=== PATIENT | female | born 1965 | race Hispanic/Latino ===

== ENCOUNTER 2020-01-05 09:38 | Emergency (ER) | payer OTHER ==
[~2020-01-05] VITALS: Ht 157.5 cm; Wt 74.8 kg
[~2020-01-05 09:38] MED LIST: CELEBREX100 MG PO; CIPROFLOXACIN750 MG PO; METHOTREXATE2.5 MG PO; NEXIUM40 MG PO; NITROFURANTOIN100 MG PO; REMICADE100 MG/VIA; [UNRECOGNIZED DRUG - OTHER] PO
--- OUTSIDE RECORDS SUMMARY | 2020-01-05 09:41 | XMS REPORT | Summary of Care ---
Author Author [facility] Outpatient Imaging - [facility] Organization [facility] Outpatient Imaging - [facility] Address Unknown Phone Unavailable Encounter HQ Thiago(FIN) [id number] Date(s): 09/28/19 - 09/28/19 [facility] Outpatient Imaging - [place] [address] [place], [place] [address] [phone] Discharge Disposition: Home or Self Care Attending Physician: Sayda Barron MD Referring Physician: Sayda Barron MD Vital Signs No data available for this section Problem List Condition Effective Dates Status Health Status Informan t Acid Active reflux(Confirmed) Gallstones(Confirmed Resolved ) Localized enlarged Active lymph nodes(Confirmed) Rheumatoid Active arthritis(Confirmed) Allergies, Adverse Reactions, Alerts Substance Reaction Severity Status ciprofloxacin Active nitrofurantoin Active cefepime Active Medications No data available for this section Results No data available for this section Immunizations No data available for this section Procedures Procedure Date Related Diagnosis Body Site Status Biopsy Completed Social History Social History Type Response Alcohol Current, Previous treatment : None. Smoking Status Never smoker; Exposure to T obacco Smoke None; Cigarette Smoking Last 365 Days No; Reg Smoking Cessation Counseli ng No entered on: 08/02/14 Assessment and Plan No data available for this section
--- OUTSIDE RECORDS SUMMARY | 2020-01-05 09:41 | XMS REPORT | CCD ---
Author Author [facility] [place] Organization [facility] Outpatient [place] - [place] Address Unknown Phone Unavailable Care Team Providers Care Hvac Design Mechanical Engineer Name Role Phone Sayda Barron CP Allergies, Adverse Reactions, Alerts Substance Reaction Status NKDA Active Problem List Condition Effective Dates Status Acid reflux Active Localized enlarged lymph nodes Active Rheumatoid arthritis Active
--- OUTSIDE RECORDS SUMMARY | 2020-01-05 09:41 | XMS REPORT | Summary of Care ---
Author Author [facility] Organization [facility] Address Unknown Phone Unavailable Encounter PEDRO LUIS Das(VIRGEN) [id number] Date(s): 03/05/19 - 03/05/19 [facility] [address] [place] [address]- [phone] Discharge Disposition: Home or Self Care Attending Physician: Nahid Fitzpatrick MD Referring Physician: Nahid Fitzpatrick MD Vital Signs No data available for [...]
--- OUTSIDE RECORDS SUMMARY | 2020-01-05 09:41 | XMS REPORT | CCD ---
Author Author [facility] Address Unknown Phone Unavailable Care Team Providers Care Wastewater Project Manager Name Role Phone Nahid Fitzpatrick CP Results STOOL TESTS Most recent to oldest [Reference Range]: 1 2 3 Occult Bld Stl [Negative] Positive *ABN* (02/09/2013 12:33:00) Positive *ABN* (02/09/2013 12:33:00) Negative (02/09/2013 12:33:00)
--- OUTSIDE RECORDS SUMMARY | 2020-01-05 09:41 | XMS REPORT | Summary of Care ---
Author Organization Unknown Address Unknown Phone Unavailable Encounter HQ Vicentar_malu([facility]) [id number] Date(s): 09/07/14 - 09/07/14 [facility] Outpatient Imaging - [address] [address]- [place] Discharge Disposition: Home Physician Attending: Sayda Barron MD Reason for Visit V74.1 - SCREENING-PULMO Problem List Condition Effective Dates Status Health Status Informan t Acid Active reflux(Confirmed) Gallstones(Confirmed Resolved ) Localized enlarged Active lymph nodes(Confirmed) Rheumatoid Active arthritis(Confirmed) Allergies, Adverse Reactions, Alerts Substance Reaction Severity Status cefepime Active ciprofloxacin Active nitrofurantoin Active Medications No data available for this section Medications Administered During Your Visit No data available for this section Immunizations No data available for this section Social History Social History Type Response Alcohol Use: Current, Previous terri tment: None Smoking Status Never smoker, Exposure to T obacco Smoke None, Cigarette Smoking Last 365 Days No, Reg Smoking Cessation Counseli ng No
--- OUTSIDE RECORDS SUMMARY | 2020-01-05 09:41 | XMS REPORT | Summary of Care ---
Author Author [facility] Organization [facility] Address Unknown Phone Unavailable Encounter HQ Vicentar_malu(FIN) [id number] Date(s): 04/26/15 - 04/26/15 [facility] [address] [place] [address]- [phone] Discharge Disposition: Home Attending Physician: Radhames Tineo MD Vital Signs No data available for [...] Procedures Procedure Date Related Diagnosis Body Site Biopsy Social History Social History Type Response Alcohol Current, Previous treatment : None. Smoking Status Never smoker; Exposure to T obacco Smoke None; Cigarette Smoking Last 365 Days No; Reg Smoking Cessation Counseli ng No Assessment and Plan No data available for this section
--- OUTSIDE RECORDS SUMMARY | 2020-01-05 09:41 | XMS REPORT | Summary of Care ---
Author Author [facility] Outpatient Imaging - [facility] Organization [facility] Outpatient Imaging - [facility] Address Unknown Phone Unavailable Encounter HQ Dolly_malu(FIN) [id number] Date(s): 06/02/15 - 06/02/15 [facility] Outpatient Imaging - [place] [address] [place], [place] [address] [phone] Discharge Disposition: Home Attending Physician: Avery Stephens MD Vital Signs No data available for [...]
--- OUTSIDE RECORDS SUMMARY | 2020-01-05 09:41 | XMS REPORT | Summary of Care ---
Author Author [facility] Organization [facility] Address Unknown Phone Unavailable Encounter HQ Dolly_malu(FIN) [id number] Date(s): 10/31/15 - 10/31/15 [facility] [address] [place] [address]- Discharge Disposition: Home Attending Physician: Sayda Barron MD Vital Signs No data available for this section Problem List Condition Effective Dates Status Health Status Informan t Acid Active reflux(Confirmed) Gallstones(Confirmed Resolved ) Localized enlarged Active lymph nodes(Confirmed) Rheumatoid Active arthritis(Confirmed) Allergies, Adverse Reactions, Alerts Substance Reaction Severity Status cefepime Active ciprofloxacin Active nitrofurantoin Active Medications No data available for this section Results IMMUNOLOGY Most recent to 1 oldest [Reference Range]: T-Spot.TB [Negative] Negative (10/31/15 10:57 AM) Immunizations No data available for this section [...]
--- OUTSIDE RECORDS SUMMARY | 2020-01-05 09:41 | XMS REPORT | Summary of Care ---
Author Organization Unknown Address Unknown Phone Unavailable Encounter HQ Vicentar_malu(FIN) [id number] Date(s): 01/31/15 - 01/31/15 [facility] [address] [place] [address]- Discharge Disposition: Home Physician Attending: Sayda Barron MD Vital Signs No data [...]
--- OUTSIDE RECORDS SUMMARY | 2020-01-05 09:41 | XMS REPORT | Summary of Care ---
Author Organization Unknown Address Unknown Phone Unavailable Encounter HQ Encntr_alias([facility]) [id number] Date(s): 04/30/14 - 04/30/14 [facility] Outpatient Imaging [address] [address]- [place] Discharge Disposition: Home Physician Attending: Radhames Tineo MD Reason for Visit V01.1 - TUBERCULOSIS CO Problem List Condition Effective Dates Status Health Status Informan t Acid Active reflux(Confirmed) Localized enlarged Active lymph nodes(Confirmed) Rheumatoid Active arthritis(Confirmed) Allergies, Adverse Reactions, Alerts Substance Reaction Severity Status NKDA Active Medications No data available for this section Medications Administered During Your Visit No data available for this section Immunizations No data available for this section
--- OUTSIDE RECORDS SUMMARY | 2020-01-05 09:41 | XMS REPORT | Summary of Care ---
Author Author [facility] Outpatient Imaging - [facility] Organization [facility] Outpatient Imaging - [facility] Address Unknown Phone Unavailable Encounter HQ Thiago(FIN) [id number] Date(s): 12/20/17 - 12/20/17 [facility] Outpatient Imaging - [place] [address] [place] [phone] Discharge Disposition: Home or Self Care Attending Physician: Sayda Barron MD Vital Signs [...]
--- OUTSIDE RECORDS SUMMARY | 2020-01-05 09:41 | XMS REPORT | Continuity of Care Document ---
Author Author Stephan HTPSUSAN [employer] Address Unknown Phone Unavailable Care Team Providers Care Lsat Instructor Name Role Phone Selerity Information Exchange Unavailable Un available Problems Problem Status Onset Date Classification Date Reported Comments Source K76.0 FATTY (CHANGE OF) LIVER, NOT ELSEW Active 03/04/2019 [facility] M05.741 Active 10/31/2015 [facility] V01.1 Active 04/26/2015 [facility] UNK Active 1 09/11/2013 [facility] 785.6 Active 04/01/2013 [facility] LABS Active 02/02/2013 [facility] 482.9 - BACTERIAL PNEUM Active 08/23/2011 [facility] [place] Gastroesophageal reflux disease (disorder) Active Problem 10/01/2019 [facility] [place] Localized enlarged lymph nodes (disorder) Active Problem 10/01/2019 [facility] [place] Rheumatoid arthritis (disorder) Active Problem [facility] [place] [place] Gallbladder calculus (disorder) Resolved Problem [facility] [place] [place] Acid reflux Active Problem 04/05/2013 [facility] Localized enlarged lymph nodes Active Problem [facility] Rheumatoid arthritis Active Problem 04/05/2013 [facility] 719.44 Active [facility] Medications Medication Details Route Status Patient Instructions Ordering Provider Order Date Source Tabor 5/325 oral tablet 1-2 ta b, PO, Q4-6H, PRN, 15 tab, Pain, Substitution Allowed, Maintenance PO Active 04/03/2013 [facility] acetaminophen-hydrocodone 325 mg-5 mg oral tablet 1 tab, Route: PO, Dosing Weight 75, kg, Q4H, PRN Pain Score 1-3, Start date: 04/03/13 8:52:00, Duration: 30 day, Stop date: 05/03/13 8:51:00 PO No Longer Active Ar[place] 04/03/2013 [facility] hydromorphone 0.5 mg, Route: I BUNCHER OPERATOR, Q5Min, Dosing Weight 75, kg, PRN Pain Score 7-10, Start date: 04/03/13 8:52:00, Duration: 5 doses or times, Stop date: Limited # of times IVP No Longer Active [facility] 04/03/2013 [facility] fentanyl 25 microgram, Route: IVP, Q5Min, Dosing Weight 75, kg, PRN Pain Score 4-6, Start date: 04/03/13 8:52:00, Duration: 4 doses or times, Stop date: Limited # of times IVP No Longer Active [facility] 04/03/2013 [facility] flumazenil 0.2 mg, Route: IVP, PRN, Dosing Weight 75, kg, PRN Benzodiazepine Reversal, Initial dose, Start date: 04/03/13 8:52:00, Duration: 30 day, Stop date: 05/03/13 8:51:00 IVP No Longer Active [facility] 04/03/2013 [facility] Lactated Ringers Injection IV 1000 mL 1,000 mL, Rate: 50 ml/hr, Infuse over: 20 hr, Route: IV, Dosing Weight 75 kg, Total Volume: 1,000, Start date: 04/03/13 8:52:00, Duration: 30 day, Stop date: 05/03/13 8:51:00 IV No Longer Active [facility] 03/19 [facility] ondansetron 4 mg, Route: IVP, ONCE, Dosing Weight 75, kg, PRN Nausea & Vomiting, Start date: 04/03/13 8:52:00 IVP No Longer Active [facility] 04/03/2013 [facility] naloxone 0.04 mg, Route: IVP, Q2MIN, Dosing Weight 75, kg, PRN Narcotic Reversal, Start date: 04/03/13 8:52:00, Duration: 8 doses or times, Stop date: Limited # of times IVP No Longer Active [facility] 04/03/2013 [facility] Ancef 1 gm, Route: IVPB, ONCE, Dosing Weight 75, kg, Start date: 04/03/13 6:58:00, Stop date: 04/03/13 6:58:00 IVPB No Longer Active [place] 04/03/2013 [facility] Lactated Ringers Injection IV 1000 mL 1,000 mL, Rate: 25 ml/hr, Infuse over: 40 hr, Route: IV, Dosing Weight 75 kg, Total Volume: 1,000, Start date: 04/03/13 6:57:00, Duration: 30 day, Stop date: 05/03/13 6:56:00 IV No Longer Active [facility] omega-3 polyunsaturated fatty acids 1 cap, PO, Daily, Substitution Allowed PO Active 04/02/2013 [facility] Remicade as an infusion every 8 weeks, Substitution Allowedas an infusion every 8 weeks Active 04/02/2013 [facility] methotrexate PO, 4 tabs every other week, 5 tabs every other wk, Substitution Allowed4 tabs every other week, 5 tabs every other wk PO Active 04/02/2013 [facility] Nexium 40 mg oral delayed release capsule 40 mg, 1 cap, PO, Daily, 30 cap, Substitution Allowed PO Active 04/02/2013 [facility] Allergies, Adverse Reactions, Alerts Substance Category Reaction Severity Reaction type Status Date Reported Comments Source ciprofloxacin Assertion Drug allergy Active [facility] [place] nitrofurantoin Assertion Drug allergy Active [facility] [place] cefepime Assertion Drug allergy Active [facility] [place] Immunizations No Data Provided for This Section Results Order Name Results Value Reference Range Date Interpretation Comments Source IMMUNOLOGY T-Spot.TB Negat kim (10/31/15 10:57 AM) Negative 10/31/2015 [facility] CHEMISTRY U Preg Negati ve (04/03/2013 05:30:00) Negati ve 04/03/2013 Normal [facility] STOOL TESTS Occult Bld Stl Posi tive *ABN* (02/09/2013 12:33:00) Negati ve 02/09/2013 ABN [facility] STOOL TESTS Occult Bld Stl Posi tive *ABN* (02/09/2013 12:33:00) Negati ve 02/09/2013 ABN [facility] STOOL TESTS Occult Bld Stl Nega tive (02/09/2013 12:33:00) Negati ve 02/09/2013 Normal [facility] Pathology Reports No Data Provided for This Section Diagnostic Reports Report Value Date Source Hand 2 views Bilateral DX EXAM : Hand 2 views Bilateral DX DATE: 09/28/2019 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 INDICATION: - M79.642 Pain in left hand;M79.641 Pain in right hand. COMPARISON: Bilateral hand radiographs dated 12/20/2017. TECHNIQUE: 2 views of the bilateral hands. FINDINGS: * No acute fracture or malalignment is identified. * Small subchondral cysts are again noted at the 1st right CMC. There is narrowing of the carpal joint spaces, similar to prior study, left worse than right. * No acute soft tissue abnormality is identified. IMPRESSION: No significant interval change in osteoarthritis of bilateral hands when compared to December 2017 09/28/2019 [facility] Barium Swallow w Esophagus Function DX Patient Name: SUSAN COOPER : 1965; Age: 53 years y/o Female MR: [id number] Study: Barium Swallow w Esophagus Function DX 03/05/2019 12:59 CDT Clinical Indication: - R13.10 Dysphagia, unspecified,K21.9 Gastro- esophageal reflux disease without esophagitis COMPARISON: None REFERENCE AIR KERMA: 69.63 mGy Fluoroscopy time: 2.4 minutes TECHNIQUE: Thin barium was utilized for recumbent prone oblique and LPO images. Thick barium was utilized for upright imaging of the esophagus and pharynx. Granola mixed with barium was given to evaluate motility with solids. FINDINGS: There is no delay in passage of the barium bolus from the pharynx into the esophagus. The cricopharyngeus relaxes normally. There is no evidence for cricopharyngeal bar or Zenker's diverticulum. Prone and LPO images of the esophagus reveal esophageal dilation. There is limited passage of contrast from the esophagus to the distal stomach with stasis of contrast. There is narrowing of the distal esophagus at the GE junction. Upright images with thick barium reveals continued stasis of contrast distally. Granola could not be administered secondary to contrast stasis. Question gastric ulceration incompletely evaluated secondary to underdistention. IMPRESSION: 1. Distal esophageal stasis of contrast with limited passage to the stomach. Distal esophageal stricture, achalasia variant are considered. 2. Question gastric ulceration. [id number] 03/05/2019 [facility] Chest 2 views DX Two-view ches t Patient Name: SUSAN COOPER : 1965; Age: 53 years Female MR: [id number] Study: Chest 2 views DX Order Time: 03/05/2019 12:57 CDT Clinical Indication: - Z87.891 Personal history of nicotine dependence,R13.10 Dysphagia, unspecified,D64.9 Anemia, unspecified,K76.0 Fatty (change of) liver, not elsewhere classified. COMPARISON: April 2015. August 2014. April 2014. September 2013. FINDINGS: Views: 2 LUNGS: There is increased lung volume. Right infrahilar atelectasis. There are no pleural effusions. There is no pneumothorax. The pulmonary vasculature is normal. Right upper quadrant surgical leslie. MEDIASTINUM: The cardiac silhouette is normal. The trachea is midline. BONES: There are no clinically significant osseous abnormalities noted. IMPRESSION: 1. Right infrahilar atelectasis. Hyperinflation. SL: [id number] 03/05/2019 [facility] Hand 2 views Bilateral DX EXAM : Hand 2 views Bilateral DX HISTORY: M79.642 Pain in left hand - M79.641 Pain in right hand COMPARISON: 01/31/2015 2 views of each hand. Mild joint space narrowing of the carpal bones is again noted without evidence of erosive process. No fracture or dislocation is seen. There is mild degenerative change at the right thumb carpometacarpal joint with small subchondral cysts. Slight DIP joint space narrowing of the right index finger. IMPRESSION: Mild narrowing of the carpal joint spaces without definitive evidence of erosive change. 12/20/2017 [facility] Pelvis Complete US EXAM: Pelvi s US HISTORY: R10.84 Generalized abdominal pain COMPARISON: None Technique: Salazar scale and color doppler with limited spectral doppler imaging of the uterus and ovaries. Findings: The uterus measures 10.3 x 4.3 by 5.8 cm. The endometrial stripe measures 0.6 cm. Subendometrial cyst measures 1 cm. The right ovary measures 3.1 x 1.3 x 2.5 cm. The left ovary measures 2.5 x 2.2 x 2.7 cm. Simple cyst or dominant follicle in the left ovary measures 1.9 cm. There is normal symmetric dopplerable flow in both ovaries. No large masses are seen in the bilateral adnexa. There is no free fluid. The bladder is distended and grossly unremarkable. IMPRESSION: No acute abnormality. There is a 1 cm subendometrial cyst which can be an indication of endometrial hyperplasia or adenomyosis. 06/02/2015 [facility] Abdomen complete US EXAM: Abdo men complete US HISTORY: R10.11 Right upper quadrant pain COMPARISON: None FINDINGS: Liver: Measures 16 cm in length (normal: 13-17 cm). Echogenicity suggests fatty infiltration and/or chronic hepatocellular disease. No suspicious lesion or surface nodularity. Portal vein is patent with hepatopedal flow. Biliary: The gallbladder is absent. There is no biliary duct dilation. Mid common bile duct measures 3 mm in diameter. Pancreas: No focal lesion. However, certain portions are obscured by overlying bowel gas and unable to be evaluated. Spleen: Measures 7.3 cm in maximal dimension (normal < 13 cm). No focal lesion is seen. Kidneys: Right and left measure 10.5 and 10.5 cm in length, respectively (normal: 9-12 cm). No hydronephrosis, suspicious renal mass, or large shadowing stone. Vascular: Visualized portions of the IVC are patent. No obvious aneurysmal dilatation of the aorta. IMPRESSION: Hepatic echogenicity suggests fatty infiltration and/or chronic hepatocellular disease. 06/02/2015 [facility] [place] Chest 2 views DX CHEST RADIOGR [facility] 2 VIEWS INDICATION: Tuberculosis exposure COMPARISON: Chest radiograph 07/08/2015 and 06/19/2012 FINDINGS: The lungs are underinflated. There is prominence of the pulmonary interstitium, reticular in appearance, gradually progressed since 06/19/2012. No consolidation, pleural effusion, or pneumothorax are visible. No suspicious pulmonary nodules are identified. The cardiac silhouette is borderline enlarged. The pulmonary vasculature is within normal limits. No acute bony abnormalities are seen. IMPRESSION: Hypoinflation of the lungs and possible progressed chronic reticular changes of the pulmonary interstitium suggest potential interstitial lung disease. CT of the chest may be beneficial for further evaluation. No acute intrathoracic abnormalities are visualized. There is no radiographic evidence of pulmonary tuberculosis. SL: 16 04/26/2015 [facility] Hand 2 views Bilateral DX BILA TERAL HANDS 3 VIEWS: Mild joint space narrowing is seen in both wrists without significant erosive changes demonstrated. The MP and interphalangeal joints appear normal width without evidence of erosions. There is normal osseous density without fractures or other acute osseous abnormalities. The soft tissues are unremarkable. IMPRESSION: Mild nonspecific joint space narrowing in the wrists without evidence of erosions. SL:13 01/31/2015 [facility] Chest 2 views Chest x-ray 2 vi ews INDICATION: TB screening COMPARISON: Previous exam of 04/30/2014 FINDINGS: Heart size and central vasculature are within normal limits. There is no effusion or focal pneumonia. No pneumothorax. No acute osseous pathology. IMPRESSION: No acute cardiopulmonary process. Stable exam. 09/07/2014 [facility] [place] Chest 2 views Chest x-ray 2 vi ews INDICATION: TB exposure COMPARISON: 10/01/2013 FINDINGS: Heart size and central vasculature are within normal limits. There is no effusion or focal pneumonia. No pneumothorax. No acute osseous pathology. IMPRESSION: No acute cardiopulmonary process. Stable exam. 04/30/2014 [facility] [place] Chest 2 views Chest x-ray 2 vi ews INDICATION: Dyspnea COMPARISON: 06/19/2012 FINDINGS: Heart size and central vasculature are within normal limits. There is no effusion or focal pneumonia. No pneumothorax. No acute osseous pathology. IMPRESSION: No acute cardiopulmonary process. 10/01/2013 [facility] Consultation Notes No Data Provided for This Section Discharge Summaries No Data Provided for This Section History and Physicals No Data Provided for This Section Vital Signs Vital Sign Value Date Comments Source Systolic (mm Hg) 150 04/03/2013 [facility] Diastolic (mm Hg) 82 04/03/2013 [facility] Systolic (mm Hg) 145 04/03/2013 [facility] Diastolic (mm Hg) 83 04/03/2013 [facility] Diastolic (mm Hg) 84 04/03/2013 [facility] Systolic (mm Hg) 142 04/03/2013 [facility] Respitory Rate 16 04/03/2013 [facility] Respitory Rate 16 04/03/2013 [facility] Weight 75 0 04/02/2013 [facility] Height 162.56 cm 04/02/2013 [facility] Encounters Location Location Details Encounter Type Encounter Number Reason For Visit Attending Provider ADM Date DC Date Status Source OD [id number] 482.9 - BACTERIAL PNEUM DINH PENNY 08/23/2011 Active [facility] [place] [id number] LABS NAHID PEARL 02/02/2013 Active [facility] [place] [id number] KHADIJAH GEORGES 04/03/2013 04/03/2013 Discharged [facility] [place] [facility] [id number] Radhames Tineo 04/30/2014 05/01/2014 [facility] [place] [facility] [place] [facility] [id number] 07 Sayda Barron 09/07/2014 09/08/[address] [facility] Outpatient [id number] Sayda Barron 01/31/2015 02/01/2015 [facility] Outpatient [id number] Radhames Tineo 04/26/2015 04/27/2015 [facility] [place] [facility] [id number] 08 Avery Jungn 06/02/2015 06/03/[address] [facility] Outpatient [id number] Saydacapo Madridan 10/31/2015 11/01/2015 [facility] [place] [facility] [id number] 09 Sayda Barron 12/20/2017 12/21/2017 [facility] [place] [facility] Outpatient [id number] Nahid Dae 03/05/2019 03/06/2019 [facility] [place] [facility] [id number] 10 Sayda Barron 09/28/2019 09/29/2019 [facility] [place] [facility] Outpatient [id number] LABS NAHID DAE Cancel [facility] Procedures Procedure Code Date Perfomer Comments Source Biopsy [id number] [facility] Assessment and Plan No Data Provided for This Section Plan of Care No Data Provided for This Section Social History Social History Date Source Social History TypeResponse Alcohol Current, Previous treatment: None. Smoking Status Never smoker; Exposure to Tobacco Smoke None; Cigarette Smoking Last 365 Days No; Reg Smoking Cessation Counseling No entered on: 08/02/14 07/28/2014 [facility] Social History TypeResponse Alcohol Current, Previous treatment: None. Smoking Status Never smoker; Exposure to Tobacco Smoke None; Cigarette Smoking Last 365 Days No; Reg Smoking Cessation Counseling No entered on: 08/02/14 07/28/2014 [facility] Family History No Data Provided for This Section Advance Directives No Data Provided for This Section Functional Status No Data Provided for This Section
--- OUTSIDE RECORDS SUMMARY | 2020-01-05 09:42 | XMS REPORT ---
Author Author [facility] t Organization [facility] Address [address] [place] [address] Phone Unavailable Care Team Providers Care Premium Card Cancellation Clerk Name Role Phone Gus Barron Attphys [place] Attphys Avery Stephens Attphys Hi Tineo Attphys Payers Payer Name Policy Type Policy Number Effective Date Expiration Date S ource Problems This patient has no known problems. Allergies, Adverse Reactions, Alerts Allergy Name Allergy Type Status Severity Reaction(s) Onset Date Inacti ve Date Treating Clinician Comments Source nitrofurantoin DA Active [place] 2015-07-01 00:00:00 [facility] ciprofloxacin DA Active [place] 2015-07-01 00:00:00 [facility] cefepime DA Active [place] 2015-07-01 00:00:00 [facility] Medications This patient has no known medications. Procedures This patient has no known procedures. Encounters Start Date/Time End Date/Time Encounter Type Admission Type [facility] Care Department Encounter ID Source 2019-09-28 10:00:00 2019-09-28 23:59:00 Outpatient Estrada Barron [facility] [id number] [facility] 2019-03-05 12:28:00 2019-03-05 23:59:00 Outpatient Nahid Rose [facility] [id number] [facility] 2019-03-05 12:28:00 2019-03-05 12:28:00 Outpatient [id number] 2017-12-20 09:10:00 2017-12-20 23:59:00 Outpatient Estrada Barron [facility] [id number] [facility] [place] 2015-10-31 10:43:00 2015-10-31 23:59:00 [id number] 2015-06-02 08:58:00 2015-06-02 23:59:00 Outpatient Asia Stephens [facility] [id number] [facility] [place] 2015-04-26 10:45:00 2015-04-26 23:59:00 [id number] 2015-01-31 11:22:00 2015-01-31 23:59:00 Outpatient Estrada Barron [facility] [id number] 2014-09-07 08:59:00 2014-09-07 23:59:00 Outpatient Estrada Barron [facility] [id number] 2014-04-30 08:54:00 2014-04-30 23:59:00 Outpatient Radhames Tineo [facility] [id number] 2013-10-01 08:51:00 2013-10-01 23:59:00 Outpatient [facility] [id number] [facility] [place] Results This patient has no known results.
[2020-01-05] MEDS ORDERED: HYDROCODONE/APAP 7.5MG-325MG 1 EA TAB PO ONE (09:45)
--- NOTE | 2020-01-05 09:53 | Emergency Department Note ---
History of Present Illnes History of Present Illness Chief Complaint: General Medicine Complaints History of Present Illness This is a 54 year old female PATIENT IN FROM HOME WITH COMPLAINTS OF TRIP AND FALL IN RESTROOM PRIOR TO ARRIVAL; STATES SHE FELT HER TOES POP. COMPLAINING OF PAIN RATED 5/10 TO LEFT FOOT, LAST TWO TOES. 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 Any updates have been documented here. Past Medical History Recent Fever: No Clinical Suspicion of Infectio: No New/Unexplained Change in Ment: No Other Medical History: RA Past Surgical History: Cholecysctectomy Social History Smoking Cessation: Never Smoker Counseling Performed: No Alcohol Use: None Any Illegal Drug Use: No TB Exposure/Symptoms: No Physically hurt or threatened: No Family History Family history of heart diseas: No Other Last Tetanus: UNK Any Pre-Existing Lines (PICC,: No Review of Systems Review of Systems Constitutional: no symptoms EENTM: no symptoms Cardiovascular: no symptoms Respiratory: no symptoms Gastrointestinal: no symptoms Genitourinary: no symptoms Musculoskeletal: joint pain Neurological: no symptoms Psychological: no symptoms Endocrine: no symptoms Hematological/Lymphatic: no symptoms Review of other systems All other systems reviewed and negative. Physical Exam Related Data Allergies: Coded Allergies: cefepime (Verified Allergy, Intermediate, RASH, 01/05/20) Triage Vital Signs Vital Signs Date Time Temp Pulse Resp B/P (MAP) Pulse Ox O2 Delivery O2 Flow Rate FiO2 01/05/20 09:40 98.1 86 16 154/94 97 Physical Exam CONSTITUTIONAL Constitutional: well-developed, well-nourished HENT HENT: normocephalic, atraumatic, oropharynx clear/moist, nose normal HENT L/R: left ext ear normal, right ext ear normal EYES Eyes: PERRL, conjunctivae normal NECK Neck: ROM normal PULMONARY Pulmonary: effort normal, breath sounds normal CARDIOVASCULAR Cardiovascular: regular rhythm, heart sounds normal, capillary refill normal, normal rate GASTROINTESTINAL Abdominal: soft, nontender, bowel sounds normal GENITOURINARY Genitourinary: exam deferred SKIN Skin: warm, dry MUSCULOSKELETAL Musculoskeletal: tenderness (left 4th & 5th toes), swelling (mild 4th, 5th toes), other (? deformity/dislocation at left 4th DIP) NEUROLOGICAL Neurological: alert, oriented x 3, no gross motor or sensory deficits PSYCHOLOGICAL Psychological: mood/affect normal, judgement normal Results Imaging Imaging results reviewed: Yes Impressions TECHNIQUE: 3 views of the left forefoot HISTORY: ^fall, 4th 5th toe pain ^[id number] ^[id number]. COMPARISON: None. IMPRESSION: Minimally displaced comminuted fracture of the fifth proximal phalanx proximal diaphysis. Nondisplaced subcentimeter avulsion fracture at the distal and lateral aspect of the fourth proximal phalanx. Overlying soft tissue swelling. Signed by: Arthur Maurer MD on 01/05/2020 10:20 AM Imaging Comments I offered to do digital block and reduce toe but pt wants to just F/U with Ortho, will call today Diagnostics Tests Diagnostic test(s) reviewed: Yes Critical Care Time Subsequent provider I assumed direction of critical care for this patient from another provider of my specialty. Assessment & Plan Reassessment Reassessment xrays reviewed with patient Temo tape last 2 left toes, post-op shoe Ibuprofen as directed Tyl #3, 1 po q4hr prn (#20) f/u with ortho Dr Peoples Radiology disc provided to patient Assessment & Plan Final Impression: (1) Toes fractured Assessment & Plan check left toes xray r/o fx/dislocation Depart Disposition: HOME, SELF-CARE Last Vital Signs Date Time Temp Pulse Resp B/P (MAP) Pulse Ox O2 Delivery O2 Flow Rate FiO2 01/05/20 09:40 98.1 86 16 154/94 97 Home Meds Reported Medications Celecoxib* (CELEBREX*) 100 Mg Capsule, 100 MG PO PRN PRN for PAIN, #30 CAP 11/29/14 Methotrexate Sodium (METHOTREXATE) 2.5 Mg Tablet, 10 MG PO WEEKLY, #30 TAB 11/29/14 Medications in the ED Acetaminophen/ Hydrocodone Bitart 1 ea NOW ONCE PO ; Start 01/05/20 at 09:45; Stop 01/05/20 at 09:46; Status UNV ANURAG VERDUZCO MD January 05, 2020 09:53
[2020-01-05] MEDS ORDERED: KETOROLAC TROMETHAMINE 60 MG/2 ML VIAL IM ONE (10:15)
--- NOTE | 2020-01-05 10:22 | NUR ---
dr soto explains to pt that 4th and 5th toes were broken and offered to reduce one of the dislocations pt refused stating she would follow up with ortho
--- NOTE | 2020-01-05 10:23 | Diagnostic Imaging Report ---
TECHNIQUE: 3 views of the left forefoot HISTORY: ^fall, 4th 5th toe pain ^[id number] ^57. COMPARISON: None. IMPRESSION: Minimally displaced comminuted fracture of the fifth proximal phalanx proximal diaphysis. Nondisplaced subcentimeter avulsion fracture at the distal and lateral aspect of the fourth proximal phalanx. Overlying soft tissue swelling. Signed by: Arthur Maurer MD on 01/05/2020 10:20 AM
[2020-01-05 10:25] VITALS: BP 126/89
== END 2020-01-05 11:02 | disposition home or self-care (01) ==
LOC: ER 09:38
DX: M79.675 Pain in left toe(s) (principal); S92.512A Displaced fracture of proximal phalanx of left lesser toe(s), initial encounter for closed fracture; W01.0XXA Fall on same level from slipping, tripping and stumbling without subsequent striking against object, initial encounter; Y92.002 Bathroom of unspecified non-institutional (private) residence as the place of occurrence of the external cause
CPT/HCPCS: 73660; 99283; J1885

== ENCOUNTER 2020-02-27 01:02 | Emergency (ER) | payer OTHER ==
[~2020-02-27] VITALS: Ht 157.5 cm; Wt 74.8 kg
[2020-02-27] MEDS ORDERED: TRAMADOL HCL 50 MG TAB PO ONE (01:15)
[2020-02-27] MEDS ORDERED: TRAMADOL HCL 50 MG TAB ONE (01:18)
--- NOTE | 2020-02-27 01:23 | Emergency Department Note ---
History of Present Illnes History of Present Illness Chief Complaint: General Medicine Complaints History of Present Illness This is a 54 year old female AAOX3 REPORTS GENERALIZED BODY ACHES FOR "A COUPLE OF MONTHS;" HOWEVER, PT REPORTS WORSE TODAY; PT HAS RA, RECEIVED TREATMENT LAST SATURDAY; PT AFEBRILE. STATES HAS BEEN A COUPLE OF YEARS SINCE HER RA HAS FLARED UP LIKE THIS . Historian: Patient Arrival Mode: Car Onset (how long ago): month(s) (2) Location: ALL OVER Quality: PAIN Radiation: Reports non-radiation Severity: moderate Onset quality: gradual Duration (how long): month(s) (2) Timing of current episode: constant Progression: worsening Context: Denies recent illness, Denies recent surgery Relieving factors: none Exacerbating factors: movement Associated symptoms: Reports denies other symptoms Treatments prior to arrival: none Past Medical/Family History Physician Review I have reviewed the patient's past medical and family history. Any updates have been documented here. Past Medical History Recent Fever: No Clinical Suspicion of Infectio: No New/Unexplained Change in Ment: No Other Medical History: RA Past Surgical History: Cholecysctectomy Social History Smoking Cessation: Never Smoker Counseling Performed: No Alcohol Use: None Any Illegal Drug Use: No Physically hurt or threatened: No Other Last Tetanus: UNK Any Pre-Existing Lines (PICC,: No Review of Systems Review of Systems Constitutional: Reports no symptoms EENTM: Reports no symptoms Cardiovascular: Reports no symptoms Respiratory: Reports no symptoms Gastrointestinal: Reports no symptoms Genitourinary: Reports no symptoms Musculoskeletal: Reports as per HPI Integumentary: Reports no symptoms Neurological: Reports no symptoms Psychological: Reports no symptoms Endocrine: Reports no symptoms Hematological/Lymphatic: Reports no symptoms Physical Exam Related Data Allergies: Coded Allergies: cefepime (Verified Allergy, Intermediate, RASH, 01/05/20) Triage Vital Signs Vital Signs Date Time Temp Pulse Resp B/P (MAP) Pulse Ox O2 Delivery O2 Flow Rate FiO2 02/27/20 01:05 97.8 110 18 124/79 98 Room Air Vital signs reviewed: Yes Physical Exam CONSTITUTIONAL Constitutional: Present well-developed, Present well-nourished HENT HENT: Present normocephalic, Present atraumatic, Present oropharynx clear/moist, Present nose normal HENT L/R: Present left ext ear normal, Present right ext ear normal EYES Eyes: Reports PERRL, Reports conjunctivae normal NECK Neck: Present ROM normal PULMONARY Pulmonary: Present effort normal, Present breath sounds normal CARDIOVASCULAR Cardiovascular: Present regular rhythm, Present heart sounds normal, Present capillary refill normal, Present normal rate GASTROINTESTINAL Abdominal: Present soft, Present nontender, Present bowel sounds normal GENITOURINARY Genitourinary: Present exam deferred SKIN Skin: Present warm, Present dry MUSCULOSKELETAL Musculoskeletal: Present ROM normal NEUROLOGICAL Neurological: Present alert, Present oriented x 3, Present no gross motor or sensory deficits PSYCHOLOGICAL Psychological: Present mood/affect normal, Present judgement normal Assessment & Plan Medical Decision Making MDM PT WITH RA AND HAVING WORSENING PAIN ALL OVER FOR PAST 2 MONTHS, TRAMADOL 50 MG PO ORDERED PT DISCHARGED WITH TRAMADOL 50 MG 1 PO Q 6 HOURS PRN PAIN #20, 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 Assessment & Plan Final Impression: (1) Rheumatoid arthritis flare Depart Disposition: HOME, SELF-CARE Last Vital Signs Date Time Temp Pulse Resp B/P (MAP) Pulse Ox O2 Delivery O2 Flow Rate FiO2 02/27/20 01:05 97.8 110 18 124/79 98 Room Air Home Meds Reported Medications Celecoxib* (CELEBREX*) 100 Mg Capsule, 100 MG PO PRN PRN for PAIN, #30 CAP 11/29/14 Methotrexate Sodium (METHOTREXATE) 2.5 Mg Tablet, 10 MG PO WEEKLY, #30 TAB 11/29/14 Medications in the ED Tramadol HCl 50 mg ONCE ONCE PO ; Start 02/27/20 at 01:15; Stop 02/27/20 at 01:17; Status DC Tramadol HCl 50 mg STK-MED ONCE .ROUTE ; Start 02/27/20 at 01:18; Stop 02/27/20 at 01:13; Status DC KHADIJAH MARTINEZ MD Feb 27, 2020 01:23
== END 2020-02-27 02:30 | disposition home or self-care (01) ==
LOC: ER 01:45
DX: M06.9 Rheumatoid arthritis, unspecified (principal)
CPT/HCPCS: 99283

== ENCOUNTER 2020-10-07 22:24 | Emergency (ER) | payer OTHER ==
[~2020-10-07] VITALS: Ht 157.5 cm; Wt 74.8 kg
[2020-10-07] MEDS ORDERED: KETOROLAC TROMETHAMINE 60 MG/2 ML VIAL IM ONE (22:45)
[2020-10-07] MEDS ORDERED: KETOROLAC TROMETHAMINE 60 MG/2 ML VIAL ONE (22:45)
[2020-10-08] MEDS ORDERED: MORPHINE SULFATE INJ 4 MG/ML INJ 1ML IV STA (00:16)
[2020-10-08] MEDS ORDERED: MORPHINE SULFATE INJ 4 MG/ML INJ 1ML IM PRN (00:20)
[2020-10-08] MEDS ORDERED: MORPHINE SULFATE INJ 4 MG/ML INJ 1ML ONE (00:26)
[2020-10-08] MEDS ORDERED: MORPHINE SULFATE INJ 4 MG/ML INJ 1ML IM ONE (00:30)
== END 2020-10-08 01:00 | disposition home or self-care (01) ==
LOC: ER 22:33
DX: M54.2 Cervicalgia (principal); M06.9 Rheumatoid arthritis, unspecified
CPT/HCPCS: 72050; 99283; J1885; J2270

== ENCOUNTER 2024-05-05 11:28 | Inpatient (IN) | payer OTHER ==
[2024-05-05] VITALS (16 sets, daily range): BP systolic 86–162; BP diastolic 47–102; PULSE 75–120; RESP 17–36; TEMP 98.5–99.7; O2SAT 84–100
[~2024-05-05] VITALS: Ht 154.9 cm; Wt 77.1 kg
[2024-05-05] MEDS: SODIUM CHLORIDE 0.9% 1000ML 1,000 ML IV STA (12:29)
[2024-05-05 12:41] LABS: BASOPHILS # (AUTO) 0.1 (0.0-0.1); BASOPHILS % 0.3 % (0.0-1.0); EOSINOPHILS # (AUTO) 0.1 (0.0-0.4); EOSINOPHILS % 0.7 % (0.0-6.0); HEMATOCRIT 36.2 % (34.2-44.1); HEMOGLOBIN 11.5 g/dL (12.0-16.0); LYMPHOCYTES # (AUTO) 1.3 (1.0-3.2); LYMPHOCYTES % 7.5 % (18.0-39.1); MEAN CORPUSCULAR HEMOGLOBIN 30.7 pg (28-32); MEAN CORPUSCULAR HGB CONC 31.8 g/dL (31-35); MEAN CORPUSCULAR VOLUME 96.5 fL (81-99); MONOCYTES # (AUTO) 1.2 (0.2-0.8); NEUTROPHILS # (AUTO) 14.7 (2.1-6.9); NEUTROPHILS % 83.6 % (38.7-80.0); PLATELET COUNT 332 x10e3/uL (140-360); RED BLOOD COUNT 3.75 x10e6/uL (3.6-5.1); RED CELL DISTRIBUTION WIDTH 14.1 % (11.7-14.4); WHITE BLOOD COUNT 17.63 x10e3/uL (4.8-10.8)
[2024-05-05 12:53] LABS: INR 0.99; PROTHROMBIN TIME 13.6 seconds (11.9-14.5)
[2024-05-05 12:54] LABS: PARTIAL THROMBOPLASTIN TIME 28.3 seconds (23.8-35.5)
[2024-05-05 13:03] LABS: ALBUMIN 3.5 g/dL (3.5-5.0); ALBUMIN/GLOBULIN RATIO 0.6 (0.8-2.0); ANION GAP 15.6 mmol/L (8-16); BILIRUBIN,TOTAL 0.9 mg/dL (0.2-1.2); CALCIUM 9.8 mg/dL (8.4-10.2); CREATININE, SERUM 0.84 mg/dL (0.57-1.11); MAGNESIUM 1.7 MG/DL (1.3-2.1); POTASSIUM 3.6 mmol/L (3.5-5.1); TOTAL PROTEIN 9.1 g/dL (6.5-8.1)
[2024-05-05 13:13] LABS: TROPONIN I 0.003 ng/mL (0-0.300)
[2024-05-05] MEDS: ALBUTEROL/IPRATROPIUM 3 ML NEB NEB ONE (13:13)
[2024-05-05] MEDS ORDERED: ALBUTEROL/IPRATROPIUM 3 ML NEB ONE (13:13)
[2024-05-05] MEDS ORDERED: IOPAMIDOL 370 MG/ML 100 ML INFUS..BTL INJ ONE (13:58)
[2024-05-05] MEDS: SODIUM CHLORIDE 0.9% 500ML 500 ML IV ONE (14:01)
[2024-05-05] MEDS ORDERED: ALBUTEROL SULF 0.083% NEB SOLN 3 ML NEB NEB PRN (16:15)
[2024-05-05] MEDS ORDERED: IPRATROPIUM BROMIDE 0.02% 2.5 ML NEB NEB PRN (16:15)
[2024-05-05] MEDS ORDERED: ONDANSETRON HCL INJ 2MG/ML 2ML 2 MG/ML VIAL IV PRN (17:00)
[2024-05-05] MEDS ORDERED: POLYETHYLENE GLYCOL 3350 17 GM PACK PO PRN (17:00)
[2024-05-05] MEDS: DOCUSATE SODIUM 100 MG CAP PO SCH (17:00)
[2024-05-05] MEDS ORDERED: HYDRALAZINE HCL 20 MG/ML VIAL IV PRN (17:00)
[2024-05-05] MEDS: SODIUM CHLORIDE 0.9% 1000ML 1,000 ML IV SCH (17:28)
[2024-05-05] MEDS: MAGNESIUM SULF 1GRAM/DEXTROSE 100 ML IV ONE (18:13)
[2024-05-05] MEDS ORDERED: IPRATROPIUM BROMIDE 0.02% 2.5 ML NEB NEB SCH (19:00)
[2024-05-05] MEDS ORDERED: ALBUTEROL SULF 0.083% NEB SOLN 3 ML NEB NEB SCH (19:00)
[2024-05-05] MEDS: ACETAMINOPHEN 325 MG TAB PO PRN (19:30)
[2024-05-06] VITALS (26 sets, daily range): BP systolic 109–149; BP diastolic 71–95; PULSE 77–101; RESP 17–27; TEMP 98.2–99.9; O2SAT 94–100
[2024-05-06 07:07] LABS: BASOPHILS % 0.2 % (0.0-1.0); EOSINOPHILS # (AUTO) 0.3 (0.0-0.4); EOSINOPHILS % 2.2 % (0.0-6.0); HEMATOCRIT 30.5 % (34.2-44.1); HEMOGLOBIN 9.5 g/dL (12.0-16.0); LYMPHOCYTES # (AUTO) 1.5 (1.0-3.2); LYMPHOCYTES % 11.2 % (18.0-39.1); MEAN CORPUSCULAR HEMOGLOBIN 30.3 pg (28-32); MEAN CORPUSCULAR HGB CONC 31.1 g/dL (31-35); MEAN CORPUSCULAR VOLUME 97.1 fL (81-99); MONOCYTES # (AUTO) 1.3 (0.2-0.8); MONOCYTES % 9.8 % (4.4-11.3); NEUTROPHILS # (AUTO) 9.8 (2.1-6.9); NEUTROPHILS % 75.7 % (38.7-80.0); PLATELET COUNT 290 x10e3/uL (140-360); RED BLOOD COUNT 3.14 x10e6/uL (3.6-5.1); RED CELL DISTRIBUTION WIDTH 14.3 % (11.7-14.4); WHITE BLOOD COUNT 12.89 x10e3/uL (4.8-10.8)
[2024-05-06 07:41] LABS: TROPONIN I 0.006 ng/mL (0-0.300)
[2024-05-06 07:42] LABS: ALBUMIN 2.7 g/dL (3.5-5.0); ALBUMIN/GLOBULIN RATIO 0.6 (0.8-2.0); ANION GAP 11.4 mmol/L (8-16); BILIRUBIN,TOTAL 0.7 mg/dL (0.2-1.2); CALCIUM 8.6 mg/dL (8.4-10.2); CREATININE, SERUM 0.66 mg/dL (0.57-1.11); TOTAL PROTEIN 7.1 g/dL (6.5-8.1)
[2024-05-06 07:49] LABS: POTASSIUM 3.4 mmol/L (3.5-5.1)
[2024-05-06 07:56] LABS: CHOL/HDL RATIO 3.9 (3.0-3.6); MAGNESIUM 1.8 MG/DL (1.3-2.1); PHOSPHORUS 3.2 MG/DL (2.3-4.7)
[2024-05-06 08:17] LABS: FREE T4 (FREE THYROXINE) 0.92 ng/dL (0.8-1.8); THYROID STIMULATING HORMONE 1.829 uIU/mL (0.350-4.940)
[2024-05-06] MEDS: POTASSIUM CHLORIDE 10MEQ EA PO ONE (09:41)
[2024-05-06] MEDS: POTASSIUM CHLORIDE 20 MEQ TAB CR PO ONE (09:46)
[2024-05-06] MEDS: FAMOTIDINE 20 MG TAB PO SCH (09:46)
[2024-05-06 15:10] LABS: TROPONIN I 0.014 ng/mL (0-0.300)
[2024-05-06] MEDS: ACETAMIN/BUTALBITAL/CAFFEINE TAB PO ONE (18:08)
[2024-05-06] MEDS: GATIFLOXACIN(OPTH) 5 ML LIQD OP SCH (18:08)
[2024-05-06] MEDS: MULTIVITAMINS/MINERALS TAB PO SCH (20:39)
[2024-05-07] VITALS (12 sets, daily range): BP systolic 123–141; BP diastolic 68–96; PULSE 86–108; RESP 17–20; TEMP 98.2–99.8; O2SAT 95–100
[2024-05-07] MEDS: ACETAMIN/BUTALBITAL/CAFFEINE TAB PO PRN (02:33)
[2024-05-07 05:29] LABS: BASOPHILS % 0.1 % (0.0-1.0); EOSINOPHILS # (AUTO) 0.5 (0.0-0.4); EOSINOPHILS % 5.3 % (0.0-6.0); HEMATOCRIT 30.2 % (34.2-44.1); HEMOGLOBIN 9.6 g/dL (12.0-16.0); LYMPHOCYTES # (AUTO) 1.1 (1.0-3.2); LYMPHOCYTES % 11.5 % (18.0-39.1); MEAN CORPUSCULAR HEMOGLOBIN 30.8 pg (28-32); MEAN CORPUSCULAR HGB CONC 31.8 g/dL (31-35); MEAN CORPUSCULAR VOLUME 96.8 fL (81-99); MONOCYTES # (AUTO) 0.9 (0.2-0.8); MONOCYTES % 9.8 % (4.4-11.3); NEUTROPHILS # (AUTO) 6.8 (2.1-6.9); NEUTROPHILS % 72.8 % (38.7-80.0); PLATELET COUNT 317 x10e3/uL (140-360); RED BLOOD COUNT 3.12 x10e6/uL (3.6-5.1); RED CELL DISTRIBUTION WIDTH 14.2 % (11.7-14.4); WHITE BLOOD COUNT 9.31 x10e3/uL (4.8-10.8)
[2024-05-07 05:58] LABS: ALBUMIN 2.7 g/dL (3.5-5.0); ALBUMIN/GLOBULIN RATIO 0.6 (0.8-2.0); ANION GAP 14.7 mmol/L (8-16); BILIRUBIN,TOTAL 0.6 mg/dL (0.2-1.2); CALCIUM 9.2 mg/dL (8.4-10.2); CREATININE, SERUM 0.7 mg/dL (0.57-1.11); POTASSIUM 3.7 mmol/L (3.5-5.1); TOTAL PROTEIN 7.5 g/dL (6.5-8.1)
[2024-05-07] MEDS: GATIFLOXACIN(OPTH) 5 ML LIQD OP SCH (20:29)
[2024-05-08] VITALS (8 sets, daily range): BP systolic 129–138; BP diastolic 85–92; PULSE 89–109; RESP 16–18; TEMP 97.7–100.4; O2SAT 94–98
[2024-05-08] MEDS ORDERED: ONDANSETRON HCL 4 MG ORAL DISINTEGRATING TAB PO PRN (13:15)
[2024-05-08] MEDS ORDERED: AMOX TR-K CLV1 EAC1 PO (13:30)
[2024-05-08] MEDS ORDERED: DAILY VITAMIN1 EAC4 PO (13:30)
[2024-05-08] MEDS ORDERED: ONDANSETRON ODT4 MG PO (13:30)
[2024-05-08] MEDS ORDERED: GATIFLOXACIN2.5 ML OU (13:30)
[2024-05-08] MEDS ORDERED: ACETAMINOPHEN325 M1 PO (13:30)
[2024-05-12 20:23] LABS: MYCOPLASMA PNEUMO IGG 156
== END 2024-05-08 16:30 | disposition home or self-care (01) | DRG 871 ==
LOC: ER 11:40 → ERHOLD 15:35 → ICU 16:30 → MED/SURG3 05-06 19:32
PROVIDERS: ADMIT Internal Medicine; ATTEND Internal Medicine
PROC: 3E0333Z Introduction of Anti-inflammatory into Peripheral Vein, Percutaneous Approach (ICD-10-PCS; principal; 2024-05-05)
PROC: 5A0935A Assistance with Respiratory Ventilation, Less than 24 Consecutive Hours, High Flow/Velocity Cannula (ICD-10-PCS; 2024-05-05)
DX: A41.9 Sepsis, unspecified organism (principal); J18.9 Pneumonia, unspecified organism; J96.01 Acute respiratory failure with hypoxia; D84.821 Immunodeficiency due to drugs; E83.42 Hypomagnesemia; D64.9 Anemia, unspecified; M06.9 Rheumatoid arthritis, unspecified; J84.89 Other specified interstitial pulmonary diseases; H10.89 Other conjunctivitis; Z11.52 Encounter for screening for COVID-19; Z79.69 Long term (current) use of other immunomodulators and immunosuppressants; Z90.49 Acquired absence of other specified parts of digestive tract; Z88.1 Allergy status to other antibiotic agents
CPT/HCPCS: 36415; 71045; 71260; 80053; 80061; 82550; 83036; 83605; 83735; 83880; 84100; 84439; 84443; 84484; 85025; 85379; 85610; 85730; 86631; 86738; 87040; 87449; 93005; 94799; 99284; J2543; J3475; J7030; J7040; J7050; Q9967; U0002

== ENCOUNTER 2024-11-07 23:30 | Emergency (ER) | payer OTHER ==
[~2024-11-07] VITALS: Ht 157.5 cm; Wt 79.4 kg
[~2024-11-07 23:30] MED LIST changes: +ACETAMINOPHEN325 M1 PO; +AMOX TR-K CLV1 EAC1 PO; +DAILY VITAMIN1 EAC4 PO; +GATIFLOXACIN2.5 ML OU; +ONDANSETRON ODT4 MG PO
[2024-11-07 23:38] VITALS: PULSE 74; RESP 16; TEMP 98.2
[2024-11-08] MEDS: ACETAMIN/BUTALBITAL/CAFFEINE TAB PO ONE (00:43)
[2024-11-08] MEDS: DIPHENHYDRAMINE HCL 25 MG CAP PO ONE (00:43)
[2024-11-08] MEDS: KETOROLAC TROMETHAMINE 30 MG/ML VIAL IV STA (00:43)
[2024-11-08] MEDS ORDERED: METOCLOPRAMIDE HCL 10 MG/2ML VIAL ONE (00:45)
[2024-11-08] MEDS: METOCLOPRAMIDE HCL 10 MG/2ML VIAL IV ONE (01:01)
[2024-11-08] MEDS ORDERED: FIORICET 50-301 EACH PO (02:03)
[2024-11-08 02:09] VITALS: BP 101/63; PULSE 69; RESP 16; TEMP 97.8; O2SAT 97
[2024-11-08] MEDS ORDERED: METOCLOPRAMIDE HCL 10 MG/2ML VIAL IV SCH (07:30)
== END 2024-11-08 02:16 | disposition home or self-care (01) ==
LOC: ER 11-08 00:14
DX: R51.9 Headache, unspecified (principal); H57.11 Ocular pain, right eye; M06.9 Rheumatoid arthritis, unspecified; M19.09 Primary osteoarthritis, other specified site
CPT/HCPCS: 70450; 99283; J1885; J2765

== ENCOUNTER 2024-12-10 20:26 | Emergency (ER) | payer OTHER ==
[~2024-12-10] VITALS: Ht 157.5 cm; Wt 79.4 kg
[~2024-12-10 20:26] MED LIST changes: +FIORICET 50-301 EACH PO
[2024-12-10 20:45] VITALS: PULSE 67; RESP 18; TEMP 97.8
[2024-12-10] MEDS: ACETAMINOPHEN 325 MG TAB PO ONE (22:54)
[2024-12-10] MEDS: TETANUS/DIPHTHERIA TOX ADULT 0.5 ML SYR IM ONE (22:57)
[2024-12-11] MEDS: LIDOCAINE HCL 1% LOCAL INJ 20 ML VIAL INJ ONE (00:09)
[2024-12-11] MEDS: BACITRACIN ZINC 0.9GM TP ONE (00:24)
[2024-12-11 00:39] VITALS: BP 107/81; PULSE 63; RESP 17; TEMP 98.2; O2SAT 98
== END 2024-12-11 00:45 | disposition home or self-care (01) ==
LOC: ER 21:28
DX: S01.81XA Laceration without foreign body of other part of head, initial encounter (principal); W01.198A Fall on same level from slipping, tripping and stumbling with subsequent striking against other object, initial encounter; Y92.89 Other specified places as the place of occurrence of the external cause; M06.9 Rheumatoid arthritis, unspecified; M19.09 Primary osteoarthritis, other specified site
CPT/HCPCS: 12013; 90471; 90714; 99283; J2003

== ENCOUNTER 2024-12-18 10:43 | Emergency (ER) | payer OTHER ==
[~2024-12-18] VITALS: Ht 157.5 cm; Wt 79.4 kg
[2024-12-18 10:55] VITALS: PULSE 66; RESP 14; TEMP 98.3; O2SAT 100
== END 2024-12-18 11:38 | disposition home or self-care (01) ==
LOC: ER 11:10
DX: Z48.02 Encounter for removal of sutures (principal)
CPT/HCPCS: 99282